=== PATIENT | female | born 2000 | race African-American/Black ===

== ENCOUNTER 2024-06-13 15:50 | Emergency (ER) | payer BC, SELFPAY ==
--- NOTE | ~2024-06-13 | XR_ITS ---
EXAMINATION: XR chest 2V DATE: 06/13/2024 16:19 INDICATION: Chest pain. TECHNIQUE: Frontal and lateral views of the chest were obtained. COMPARISON: None. FINDINGS: There is no pneumonia, pleural effusion, or pneumothorax. The heart size is normal. IMPRESSION: 1. No acute cardiopulmonary disease. Reviewed, dictated and finalized at location A. [facility]
[2024-06-13 15:54] VITALS: BP 126/74; PULSE 86; RESP 16; TEMP 36.3; O2SAT 100
--- NOTE | 2024-06-13 16:00 | ECG_ITS ---
Test Date: 2024-06-13 16:05:17 Measurements Intervals Page Rate: 85 P: 57 FL: 148 QRS: 59 QRSD: 79 T: 39 QT: 334 QTc: 399 Interpretive Statements SINUS RHYTHM MINIMAL Q WAVES- INFERIOR LEADS BASELINE ARTIFACT- I, II, III, AVR, AVL, AVF, V1-V6 BORDERLINE ECG No previous ECG available for comparison Electronically Signed On 06-13-2024 16:07:27 WRAPPER COUNTER by Mario Mendez D.O.
[2024-06-13 16:12] LABS: Basophils Percent Auto 0.5 % (0.2-1.2); Eosinophils Absolute Auto 0.1 K/mm3 (0-0.3); Eosinophils Percent Auto 1.2 % (0-4.4); Hematocrit 41.6 % (37.0-47.0); Immature Granulocyte Absolute 0.02 K/mm3 (0.00-0.031); Immature Granulocyte Percent A 0.3 % (0-0.5); Lymphocytes Absolute Auto 1.41 K/mm3 (0.9-3.2); Lymphocytes Percent Auto 18.1 % (18.3-44.2); Mean Corpuscular HGB Conc 33.7 g/dl (32-36); Mean Corpuscular Hemoglobin 28.3 pg (26-34); Mean Corpuscular Volume 84.2 fl (80-100); Monocytes Absolute Auto 0.4 K/mm3 (0.1-0.6); Monocytes Percent Auto 5.5 % (2.6-8.5); Neutrophils Absolute Auto 5.8 K/mm3 (1.3-6.7); Neutrophils Percent Auto 74.4 % (45.5-73.1); Platelet Count Result 333 k/mm3 (150-375); Red Blood Count 4.94 M/mm3 (4.2-5.4); Red Cell Distribution Width 13.2 % (11.5-14.5); White Blood Count 7.8 K/mm3 (4.5-10.0)
[2024-06-13 16:22] LABS: Alanine Aminotransferase 23 U/L (6-35); Albumin Level 4.3 g/dL (3.5-5.1); Alkaline Phosphatase 62 U/L (38-126); Anion Gap 10 mmol/L (4-12); Aspartate Amino Transferase 21 U/L (14-36); Bilirubin,Total 0.6 mg/dL (0.2-1.3); Blood Urea Nitrogen 16 mg/dL (7-17); Carbon Dioxide 25 mmol/L (22-30); Chloride 105 mmol/L (98-107); Estimated CRCL calculation 108 ml/min; Estimated Glomerular Filt Rate > 60; Glucose 99 mg/dL (65-110); Lipase 84 U/L (23-300); Potassium 4.2 mmol/L (3.4-5.0); Sodium 140 mmol/L (137-145)
[2024-06-13 16:34] LABS: Prothrombin Time 13.6 Seconds (11.1-14.7); Troponin I < 0.012 ng/mL (0.000-0.034)
[2024-06-13 16:35] LABS: Partial Thromboplastin Time 27.2 Seconds (22.3-36.8)
--- NOTE | 2024-06-13 16:50 | ED_ITS ---
HPI - Chest Pain General Chief Complaint: Chest Pain <ARGENTINA Espinoza Last Filed: 06/13/24 17:19> Stated Complaint: CP, mid-sternal, radiates to back <ARGENTINA Espinoza Last Filed: 06/13/24 17:19> Time Seen by Provider: 06/13/24 16:50 <ARGENTINA Espinoza Last Filed: 06/13/24 17:19> Focused HPI: Patient is a 24 y/o female who presents to the ED with c/o CP. Patient reports having pain in her midsternal chest and into R upper chest, through to her back. Describes the pain as sharp and stabbing. Reports pain has been intermittent for the past few months. Began again last night and has persisted into today. Took ibuprofen around 2pm today w/o improvement. Denies pain with deep breath. Denies shortness of breath. Denies pain or swelling in legs, recent long distance travel. Denies cough, fevers. Denies any recent heavy lifting, strenuous activity. GENERAL: Well-appearing, well-nourished, and in no acute distress. HEAD: Normocephalic, atraumatic. CHEST: Clear to auscultation. ?No respiratory distress. HEART: Regular rate and rhythm.? MSK: TTP over R anterior chest wall, reproducing pain. NEURO: ?Alert and oriented x3. Patient screened in triage and initial orders placed.? ?Additional care and disposition to be based upon?diagnostic testing and treatment. <ARGENTIAN Espinoza Last Filed: 06/13/24 17:19> Focused HPI: Patient is a 24 y/o female who presents to the ED with c/o CP. Patient reports having pain in her midsternal chest and into R upper chest, through to her back. Describes the pain as sharp and stabbing. Reports pain has been intermittent for the past few months. Began again last night and has persisted into today. Took ibuprofen around 2pm today w/o improvement. Denies pain with deep breath. Denies shortness of breath. Denies pain or swelling in legs, recent long distance travel. Denies cough, fevers. Denies any recent heavy lifting, strenuous activity. GENERAL: Well-appearing, well-nourished, and in no acute distress. HEAD: Normocephalic, atraumatic. CHEST: Clear to auscultation. ?No respiratory distress. HEART: Regular rate and rhythm.? MSK: TTP over R anterior chest wall, reproducing pain. NEURO: ?Alert and oriented x3. Patient screened in triage and initial orders placed.? ?Additional care and disposition to be based upon?diagnostic testing and treatment. Agree with triage assessment. Patient also informed me that she has been doing some upper body workout recently and admits that her chest pain is reproducible with palpation and certain movements. <Jose Lora MD - Last Filed: 06/13/24 20:35> Source: patient <China Smith PA-C - Last Filed: 06/13/24 17:19> Mode of arrival: ambulatory <China Smith PA-C - Last Filed: 06/13/24 17:19> Limitations: no limitations <China Smith PA-C - Last Filed: 06/13/24 17:19> Related Data Allergies/Adverse Reactions: Allergies Allergy/AdvReac Type Severity Reaction Status Date / Time No Known Allergies Allergy Verified 06/13/24 15:52 <China Smith PA-C - Last Filed: 06/13/24 17:19> Review of Systems 2 Review of Systems: All systems are reviewed and are negative unless stated otherwise in the HPI. <Jose Lora MD - Last Filed: 06/13/24 20:35> Exam 2 Narrative: General: Alert, awake, afebrile, in no acute distress. HEENT: PERRL, no rhinorrhea, no post nasal drip, oropharynx clear. Neck: Trachea midline, no JVD, no lymphadenopathy. Cardiovascular: Regular rate and rhythm, no murmurs, rubs or gallops, no peripheral edema. Respiratory: Clear to auscultation bilaterally, no tachypnea, no wheezing, no rhonchi, no rubs, no respiratory distress. Abdomen: Soft, nontender, nondistended, no rebound, no guarding, no peritoneal signs. Musculoskeletal: No joint swelling or deformity, normal muscle tone. Skin: No rashes or petechia, no signs of infection. Psychiatric: Alert and oriented, normal behavior and judgment for situation. Neurological: Alert and oriented to person, place, and time. Follows all commands. No focal deficits, speech is clear and fluent. <Jose Lora MD - Last Filed: 06/13/24 20:35> Course Vital Signs Vital signs: Vital Signs Temperature 97.4 F L 06/13/24 15:54 Pulse Rate 86 06/13/24 15:54 Respiratory Rate 16 06/13/24 15:54 Blood Pressure 126/74 06/13/24 15:54 Pulse Oximetry 100 06/13/24 15:54 Oxygen Delivery Room Air 06/13/24 15:54 Temperature 97.4 F L 06/13/24 15:54 Pulse Rate 86 06/13/24 15:54 Respiratory Rate 16 06/13/24 15:54 Blood Pressure 126/74 06/13/24 15:54 Pulse Oximetry 100 06/13/24 15:54 Oxygen Delivery Room Air 06/13/24 15:54 <China Smith PA-C - Last Filed: 06/13/24 17:19> Vital Signs Temperature 97.4 F L 06/13/24 15:54 Pulse Rate 86 06/13/24 15:54 Respiratory Rate 16 06/13/24 15:54 Blood Pressure 126/74 06/13/24 15:54 Pulse Oximetry 100 06/13/24 15:54 Oxygen Delivery Room Air 06/13/24 15:54 Temperature 97.4 F L 06/13/24 15:54 Pulse Rate 86 06/13/24 15:54 Respiratory Rate 16 06/13/24 15:54 Blood Pressure 126/74 06/13/24 15:54 Pulse Oximetry 100 06/13/24 15:54 Oxygen Delivery Room Air 06/13/24 15:54 <Jose Lora MD - Last Filed: 06/13/24 20:35> MDM - Chest Pain MDM Narrative Medical decision making narrative: MSE by ALEKSANDAR in triage. <China Smith PA-C - Last Filed: 06/13/24 17:19> MSE by ALEKSANDAR in triage. The patient was evaluated by myself in the emergency department. History is obtained from patient who is an independent historian and physical exam was performed. External medical records were reviewed at this time. IV was established and pertinent tests were ordered. EKG was obtained which revealed sinus rhythm rate of 85 beats per minute. No ST changes, T wave inversions or evidence of acute ischemia. EKG was independently interpreted by me and is currently pending official cardiology read. Laboratory results obtained revealing no acute process. Troponin negative. Imaging studies obtained included CXR which was independently interpreted by me revealing no acute cardiopulmonary process, which is pending final radiology interpretation. Differential diagnosis considerations include costochondritis, chest wall pain, infectious process such as pneumonia, anxiety, acute stress reaction. Patient is PERC negative. Heart score 0. Comorbidities impacting this visit include recent strenuous musculoskeletal activity. I have evaluated and discussed social determinants of health with the patient that could potentially impact subsequent diagnosis and treatment plans. On repeat assessment of the patient, reevaluation revealed that the patient is doing well and is in no acute distress. Patient symptoms have improved since she arrived to our emergency department. Repeat vital signs were all reviewed and noted to be stable. Differential diagnosis and treatment plan were discussed with the patient at bedside. Patient agrees with discussion and after shared medical decision making agrees with discharge. All questions were answered to the patient's satisfaction. Patient will follow up with her PCP in 3-5 days. Patient was provided with strict return precautions and instructed to return to the emergency department if any new or worsening symptoms develop. The patient was discharged in stable condition. <Jose Lora MD - Last Filed: 06/13/24 20:35> Lab Data Result diagrams: 06/13/24 16:03 06/13/24 16:03 <China Smith PA-C - Last Filed: 06/13/24 17:19> Labs: Lab Results 06/13/24 Range/Units 16:03 WBC 7.8 (4.5-10.0) K/mm3 RBC 4.94 (4.2-5.4) M/mm3 Hgb 14.0 (12.0-15.0) g/dL Hct 41.6 (37.0-47.0) % MCV 84.2 (80-100) fl MCH 28.3 (26-34) pg MCHC 33.7 (32-36) g/dl RDW 13.2 (11.5-14.5) % Plt Count 333 (150-375) k/mm3 MPV 10.0 (7.4-10.4) fl Immature Gran % (Auto) 0.3 (0-0.5) % Neut % (Auto) 74.4 H (45.5-73.1) % Lymph % (Auto) 18.1 L (18.3-44.2) % Jefferson % (Auto) 5.5 (2.6-8.5) % Eos % (Auto) 1.2 (0-4.4) % Baso % (Auto) 0.5 (0.2-1.2) % Lymph # (Auto) 1.41 (0.9-3.2) K/mm3 Jefferson # (Auto) 0.4 (0.1-0.6) K/mm3 Eos # (Auto) 0.1 (0-0.3) K/mm3 Baso # (Auto) 0.0 (0.0-0.1) K/mm3 Abs Immat Gran (auto) 0.02 (0.00-0.031) K/mm3 Absolute Neuts (auto) 5.8 (1.3-6.7) K/mm3 Absolute Nucleated RBC 0.000 (0.0-0.012) K/mm3 Nucleated RBC % 0.0 (0.0-0.2) % PT 13.6 (11.1-14.7) Seconds INR 1.0 APTT 27.2 (22.3-36.8) Seconds Sodium 140 (137-145) mmol/L Potassium 4.2 (3.4-5.0) mmol/L Chloride 105 (98-107) mmol/L Carbon Dioxide 25 (22-30) mmol/L Anion Gap 10 (4-12) mmol/L BUN 16 (7-17) mg/dL Creatinine 0.62 L (0.7-1.0) mg/dL Estim Creat Clear Calc 108 ml/min Estimated GFR > 60 (59 - ) Glucose 99 (65-110) mg/dL Calcium 9.0 (8.4-10.2) mg/dL Total Bilirubin 0.6 (0.2-1.3) mg/dL AST 21 (14-36) U/L ALT 23 (6-35) U/L Alkaline Phosphatase 62 (38-126) U/L Troponin I < 0.012 (0.000-0.034) ng/mL Total Protein 8.0 (6.3-8.2) g/dL Albumin 4.3 (3.5-5.1) g/dL Lipase 84 (23-300) U/L <China Smith PA-C - Last Filed: 06/13/24 17:19> Lab Results 06/13/24 Range/Units 16:03 WBC 7.8 (4.5-10.0) K/mm3 RBC 4.94 (4.2-5.4) M/mm3 Hgb 14.0 (12.0-15.0) g/dL Hct 41.6 (37.0-47.0) % MCV 84.2 (80-100) fl MCH 28.3 (26-34) pg MCHC 33.7 (32-36) g/dl RDW 13.2 (11.5-14.5) % Plt Count 333 (150-375) k/mm3 MPV 10.0 (7.4-10.4) fl Immature Gran % (Auto) 0.3 (0-0.5) % Neut % (Auto) 74.4 H (45.5-73.1) % Lymph % (Auto) 18.1 L (18.3-44.2) % Jefferson % (Auto) 5.5 (2.6-8.5) % Eos % (Auto) 1.2 (0-4.4) % Baso % (Auto) 0.5 (0.2-1.2) % Lymph # (Auto) 1.41 (0.9-3.2) K/mm3 Jefferson # (Auto) 0.4 (0.1-0.6) K/mm3 Eos # (Auto) 0.1 (0-0.3) K/mm3 Baso # (Auto) 0.0 (0.0-0.1) K/mm3 Abs Immat Gran (auto) 0.02 (0.00-0.031) K/mm3 Absolute Neuts (auto) 5.8 (1.3-6.7) K/mm3 Absolute Nucleated RBC 0.000 (0.0-0.012) K/mm3 Nucleated RBC % 0.0 (0.0-0.2) % PT 13.6 (11.1-14.7) Seconds INR 1.0 APTT 27.2 (22.3-36.8) Seconds Sodium 140 (137-145) mmol/L Potassium 4.2 (3.4-5.0) mmol/L Chloride 105 (98-107) mmol/L Carbon Dioxide 25 (22-30) mmol/L Anion Gap 10 (4-12) mmol/L BUN 16 (7-17) mg/dL Creatinine 0.62 L (0.7-1.0) mg/dL Estim Creat Clear Calc 108 ml/min Estimated GFR > 60 (59 - ) Glucose 99 (65-110) mg/dL Calcium 9.0 (8.4-10.2) mg/dL Total Bilirubin 0.6 (0.2-1.3) mg/dL AST 21 (14-36) U/L ALT 23 (6-35) U/L Alkaline Phosphatase 62 (38-126) U/L Troponin I < 0.012 (0.000-0.034) ng/mL Total Protein 8.0 (6.3-8.2) g/dL Albumin 4.3 (3.5-5.1) g/dL Lipase 84 (23-300) U/L <Jose Lora MD - Last Filed: 06/13/24 20:35> Discharge Plan Discharge Clinical Impression: Chest wall pain <China Smith PA-C - Last Filed: 06/13/24 17:19> Patient Disposition: Home, Self-Care <China Smith PA-C - Last Filed: 06/13/24 17:19> Condition: Improved <China Smith PA-C - Last Filed: 06/13/24 17:19> Instructions: Antibiotic Form, Chest Wall Pain (ED) <China Smith PA-C - Last Filed: 06/13/24 17:19> Additional Instructions: Please follow-up with your family doctor within the next 3-5 days. Return to the ED if any new or worsening symptoms develop. <China Smith PA-C - Last Filed: 06/13/24 17:19> Patient Language: Eritrean <China Smith PA-C - Last Filed: 06/13/24 17:19> Follow-up/Referrals: PHYSICIAN NOT ON STAFF,NONSTAFF [Primary Care Provider] - 3 Days Dominic Trinh MD [Physician] - 3 Days <China Smith PA-C - Last Filed: 06/13/24 17:19> Time of Disposition: 20:35 <China Smith PA-C - Last Filed: 06/13/24 17:19> 20:35 <Jose Lora MD - Last Filed: 06/13/24 20:35>
[2024-06-13] MEDS: ASPIRIN 81 MG CHEWABLE TABLET 324 MG PO (17:17)
[2024-06-13] MEDS: CYCLOBENZAPRINE HCL 5 MG TABLET PO (17:17)
[2024-06-13 20:37] VITALS: BP 120/75; PULSE 64; RESP 18; TEMP 36.4; O2SAT 100
--- OUTSIDE RECORDS SUMMARY | 2024-06-13 20:44 | XMS_ITS | Clinical Summary ---
Author Organization [facility] Address [address] [place] [id number] Care Team Providers Care Acting Manager Name Role Phone Unavailable Primary Care Provider Unavailabl e Immunizations Immunization Administration Dates Next Due Covid-19, Mrna, Lnp-s, Pf, 30 Mcg/0.3 Ml Dose (Maricarmen elam) 01/20/2021 Social History Tobacco Use Types Packs/Day Years Used Date Smoking Tobacco: Never Assessed Comments Unknown Sex and Gender Information Value Date Recorded Sex Assigned at Not on file Legal Sex Female 1:45 PM CDT Gender Identity Not on file Sexual Orientation Not on file Plan of Treatment Health Maintenance Due Date Last Done Comments Hepatitis C Virus (HCV) Screening 1999 Hepatitis B Immunization (2 of 3 - 3-dose series) 1999 1999 Pap Smear 2020 Influenza Immunization (#1) 12/23/202312/22, 02/16/2016, 04/26/2006, Additional history exists SARS-COV-2 Immunization ( season) 2023 01/20/2021, 12/30/2020 Respiratory Syncytial Virus (RSV) Immunization (Adult) (1 - 1-dose 75+ series) 2074 Human Papillomavirus (HPV) Immunization Completed 08/02/2015, 11/18/2013 Meningococcal Immunization (ACWY) Completed 08/02/2015, 11/18/2013 Meningococcal B Immunization Discontinued 02/16/2016, 08/02/2015 DTaP/Tdap/Td Immunization Discontinued 2019, 02/09/2012, 10/05/2003 TdaP Immunization Completed 01/05/2020, 02/09/2012 Pneumococcal Immunization Combined Aged Out No longer eligible based on patient's age to complete this topic Rotavirus Immunization Aged Out No lo nger eligible based on patient's age to complete this topic
== END 2024-06-13 20:43 | disposition home or self-care (01) ==
LOC: ANHED 20:42
PROVIDERS: Emergency Medicine; Emergency Provider Emergency Medicine
DX: R07.89 Other chest pain (principal)
CPT/HCPCS: 36415; 71046; 80053; 83690; 84484; 85025; 85610; 85730; 93005; 99284; A9270